=== PATIENT | male | born 1995 | race Caucasian/White ===

== ENCOUNTER 2017-05-28 01:56 | Emergency (ER) | payer OTHER ==
[~2017-05-28] VITALS: Ht 190.5 cm; Wt 86.6 kg
[2017-05-28 02:00] VITALS: TEMP 37.8; Ht 190.5 cm; Wt 86.6 kg
[2017-05-28] MEDS ORDERED: KETOROLAC TROMETHAMINE 30 MG/ML VIAL IV STA (02:30)
[2017-05-28] MEDS ORDERED: ACETAMINOPHEN 500 MG TAB PO STA (02:30)
[2017-05-28] MEDS ORDERED: SODIUM CHLORIDE 0.9% 1000ML 1,000 ML IV STA (02:30)
[2017-05-28 03:08] LABS: BASO % 0.1 %; BASO ABS # 0.01 K/uL (0-0.2); EOS % 0.2 %; EOS ABS # 0.02 K/uL (0-0.5); HEMATOCRIT 40.7 % (42-52); IG# 0.02 K/uL (0.00-0.02); LYMPH % 9.1 %; LYMPH ABS # 0.74 K/uL (1.2-3.4); MEAN CELL VOLUME 88.1 fL (80-100); MEAN CORPUSCULAR HEMOGLOBIN 30.3 pg (25-34); MEAN CORPUSCULAR HGB CONC 34.4 g/dl (32-36); MEAN PLATELET VOLUME 11.5 fL (7.4-10.4); MONO % 10.6 %; MONO ABS # 0.86 K/uL (0.11-0.59); NEUT % 79.8 %; NEUT ABS # 6.47 K/uL (1.4-6.5); PLATELET COUNT 166 K/uL (130-400); RED CELL DISTRIBUTION WIDTH CV 13.3 % (11.5-14.5); RED CELL DISTRIBUTION WIDTH SD 42.6 fL (36.4-46.3); WHITE BLOOD COUNT 8.12 K/uL (4.8-10.8)
[2017-05-28 03:26] LABS: INFLUENZA B ANTIGEN Neg for Influ B (NEG)
[2017-05-28 03:27] LABS: ALBUMIN 3.8 gm/dl (3.4-5.0); CALCIUM 8.6 mg/dl (8.5-10.1); CREATININE 1.07 mg/dl (0.60-1.40); POTASSIUM 3.6 mmol/L (3.5-5.1)
[2017-05-28 03:30] LABS: TOTAL PROTEIN 7.9 gm/dl (6.4-8.2)
--- NOTE | 2017-05-28 04:00 | EMERGENCY ROOM VISIT NOTE ---
History First contact with patient: 02:10 Chief Complaint: FLU LIKE SX Stated Complaint: MIGRAINE,FEVER,NECK/BACK PAIN,LIGHT HEADED,NAUSEA History of Present Illness The patient is a 21 year old male who presents to the Emergency Room with complaints of flulike symptoms. The patient reports that he woke up this morning with a mild sore throat. He states that his symptoms significantly worsened throughout the day. He now reports headache, sore throat, ear pain, body aches, lightheadedness, mild cough and nasal drainage. He has not taken any medication for his symptoms. He did not receive a flu vaccine this year. He denies any sick contacts. He rates his overall discomfort an 8/10. He denies pain in the back of his neck or stiffness. He denies abdominal pain, nausea, vomiting or diarrhea. Review of Systems A complete 10 point review of systems was reviewed with the patient with pertinent positives and negatives as per history of present illness. All else were negative. Past Medical/Surgical History Medical Problems: (1) Homocysteinemia Social History Smoking Status: Never Smoker Alcohol Use: occasionally Marital Status: single Housing Status: lives with roommate Occupation Status: [employer] student Current/Historical Medications No Active Prescriptions or Reported Meds Physical Exam Vital Signs Date Time Temp Pulse Resp B/P (MAP) Pulse Ox O2 Delivery O2 Flow Rate FiO2 05/28/17 04:08 72 20 128/70 98 05/28/17 02:00 37.8 129 16 108/67 94 Room Air Physical Exam VITALS: Vitals are noted on the nurse's note and reviewed by myself. Vital signs stable. GENERAL: This is a 21-year-old male, in no acute distress, nondiaphoretic, well- developed well-nourished. SKIN: The skin was without rashes. EARS: External auditory canals clear. Tympanic membranes mildly erythematous bilaterally. EYES: Pupils equal round and reactive to light and accommodation. NOSE: Patent, turbinates without inflammation or discharge. MOUTH: Mucous membranes moist. Bilateral tonsils are moderately enlarged but not inflamed. There is no exudate. Airway patent. NECK: Supple without nuchal rigidity. No lymphadenopathy. No meningismus. HEART: Regular rate and rhythm without murmurs gallops or rubs. LUNGS: Clear to auscultation bilaterally without wheezes, rales or rhonchi. No retractions or accessory muscle use. ABDOMEN: Positive bowel sounds x 4. Soft, nontender to palpation. NEURO: Patient was alert and oriented to person place and time. Medical Decision & Procedures ER Provider Diagnostic Interpretation: CHEST 1 VIEW: No infiltrates. Normal cardiac silhouette. Per my interpretation. Laboratory Results 05/28/17 02:50 Red Blood Count 4.62, Mean Corpuscular Volume 88.1, Mean Corpuscular Hemoglobin 30.3, Mean Corpuscular Hemoglobin Concent 34.4, Mean Platelet Volume 11.5, Neutrophils (%) (Auto) 79.8, Lymphocytes (%) (Auto) 9.1, Monocytes (%) (Auto) 10.6, Eosinophils (%) (Auto) 0.2, Basophils (%) (Auto) 0.1, Neutrophils # (Auto ) 6.47, Lymphocytes # (Auto) 0.74, Monocytes # (Auto) 0.86, Eosinophils # (Auto ) 0.02, Basophils # (Auto) 0.01 05/28/17 02:50 Test 05/28/17 02:50 White Blood Count 8.12 K/uL (4.8-10.8) Red Blood Count 4.62 M/uL (4.7-6.1) Hemoglobin 14.0 g/dL (14.0-18.0) Hematocrit 40.7 % (42-52) Mean Corpuscular Volume 88.1 fL (80-100) Mean Corpuscular Hemoglobin 30.3 pg (25-34) Mean Corpuscular Hemoglobin Concent 34.4 g/dl (32-36) Platelet Count 166 K/uL (130-400) Mean Platelet Volume 11.5 fL (7.4-10.4) Neutrophils (%) (Auto) 79.8 % Lymphocytes (%) (Auto) 9.1 % Monocytes (%) (Auto) 10.6 % Eosinophils (%) (Auto) 0.2 % Basophils (%) (Auto) 0.1 % Neutrophils # (Auto) 6.47 K/uL (1.4-6.5) Lymphocytes # (Auto) 0.74 K/uL (1.2-3.4) Monocytes # (Auto) 0.86 K/uL (0.11-0.59) Eosinophils # (Auto) 0.02 K/uL (0-0.5) Basophils # (Auto) 0.01 K/uL (0-0.2) RDW Standard Deviation 42.6 fL (36.4-46.3) RDW Coefficient of Variation 13.3 % (11.5-14.5) Immature Granulocyte % (Auto) 0.2 % Immature Granulocyte # (Auto) 0.02 K/uL (0.00-0.02) Anion Gap 7.0 mmol/L (3-11) Est Creatinine Clear Calc Drug Dose 131.6 ml/min Estimated GFR () 115.2 Estimated GFR (Non- 99.4 BUN/Creatinine Ratio 11.6 (10-20) Calcium Level 8.6 mg/dl (8.5-10.1) Total Bilirubin 0.4 mg/dl (0.2-1) Aspartate Amino Transf (AST/SGOT) 30 U/L (15-37) Alanine Aminotransferase (ALT/SGPT) 59 U/L (12-78) Alkaline Phosphatase 73 U/L (45-117) Total Protein 7.9 gm/dl (6.4-8.2) Albumin 3.8 gm/dl (3.4-5.0) Globulin 4.1 gm/dl (2.5-4.0) Albumin/Globulin Ratio 0.9 (0.9-2) Influenza Type A Antigen Neg for Influ A (NEG) Influenza Type B Antigen Neg for Influ B (NEG) Medications Administered Medications (Trade) Dose Ordered Sig/Miladis Route Start Time Stop Time Status Last Admin Dose Admin Sodium Chloride 1,000 ml @ 999 mls/hr Q1H1M STAT IV 05/28/17 02:30 05/28/17 03:30 DC 05/28/17 02:56 999 MLS/HR Ketorolac Tromethamine (Toradol Inj) 30 mg NOW STAT IV 05/28/17 02:30 05/28/17 02:34 DC 05/28/17 02:57 30 MG Acetaminophen (Tylenol Tab) 1,000 mg NOW STAT PO 05/28/17 02:30 05/28/17 02:34 DC 05/28/17 02:57 1,000 MG Medical Decision Differential diagnosis includes influenza, viral illness, pneumonia, strep pharyngitis, mononucleosis, among others. The patient is a 21-year-old male who presents today complaining of flulike symptoms. Labs revealed no leukocytosis, anemia or concerning electrolyte abnormalities. Flu testing was negative. No evidence of meningitis/ encephalitis on exam. Patient was treated with fluids, Toradol and Tylenol with significant improvement of his symptoms. He was informed he likely has viral flulike illness and conservative measures were discussed with the patient. He was advised to follow-up with [facility] and return here as needed for any worsening or new/concerning symptoms. Based on the patient's presentation and work up, I feel the patient is stable for outpatient treatment. The patient was educated to return to the emergency department for any worsening of their current condition or new/concerning symptoms. He will follow up with [facility]. Medication Reconcilliation Current Medication List: was personally reviewed by me Blood Pressure Screening Patient's blood pressure: Normal blood pressure Impression Primary Impression: Influenza-like symptoms Departure Information Dispostion Home / Self-Care Condition GOOD Prescriptions No Active Prescriptions or Reported Meds Referrals [facility] (PCP) Patient Instructions My [facility] Additional Instructions For pain/fever control, you can use the following [id number] medicines ( if >12 yo): - Extra strength (500mg/tab) Tylenol (acetaminophen) 2 tabs every 4-6 hours as needed. Do not exceed 12 tablets in a 24 hour period. Avoid taking more than 4 grams (4000 mg) of Tylenol per day. This includes any other sources of acetaminophen you may take on a regular basis. - Regular strength (200 mg/tab) Advil (ibuprofen) 3-4 tabs every 4-6 hours as needed. Do not exceed a dose of 3200 mg per day. Rest and drink plenty of fluids. No class for 3 days. Follow-up with [facility] for recheck. Return to the emergency department if you develop stiffness in the back of your neck, persistent vomiting, or any other significantly worsening or new/ concerning symptoms.
[2017-05-28 04:08] VITALS: BP 128/70; PULSE 72; O2SAT 98
--- NOTE | 2017-05-28 06:49 | DIAGNOSTIC IMAGING REPORT ---
CHEST ONE VIEW PORTABLE CLINICAL HISTORY: Fever. COMPARISON STUDY: No previous studies for comparison. FINDINGS: Lung volumes are normal. Lungs are clear. No pneumothorax or pleural effusion is noted. Cardiac size is normal. Mediastinal contours are normal. There is no evidence for pulmonary edema. IMPRESSION: No acute cardiopulmonary findings. Electronically signed by: Thaddeus Mabry M.D. 05/28/2017 6:48 AM Dictated Date/Time: 05/28/2017 6:48 AM
== END 2017-05-28 04:10 | disposition home or self-care (01) ==
LOC: C.EDB 01:59
DX: R51 Headache (principal); J02.9 Acute pharyngitis, unspecified; R42 Dizziness and giddiness; R09.81 Nasal congestion; Z87.898 Personal history of other specified conditions